=== PATIENT | female | born 1950 | race Caucasian/White ===

== ENCOUNTER 2019-04-29 15:09 | Observation (INO) | payer MEDICARE, OTHER ==
[2019-04-29 15:58] LABS: #Basophils 0.1 thou/uL (0.0-0.2); #Eosinphils 0.2 thou/uL (0.0-0.7); #Lymphocytes 2.6 thou/uL (1.20-3.40); #Monocytes 0.7 thou/uL (0.11-0.59); #Neutrophils 3.6 thou/uL (1.40-6.50); %Basophils 1.1 % (0.0-1.0); %Eosinophils 2.2 % (0.0-10.0); %Lymphocytes 36.5 % (21.0-51.0); %Monocytes 9.2 % (0.0-10.0); %Neutrophils 51.1 % (42.0-75.0); Hemoglobin 13.8 g/dL (12.0-16.0); Mean Corpuscular HGB CONC 32.8 g/dL (32.0-36.0); Mean Corpuscular Hemoglobin 30.8 pg (27.0-31.0); Mean Platelet Volume 7.3 fL (7.4-10.4); Platelet Count 232 thou/uL (130-400); RBC Distribution Width 12.1 % (11.5-14.5); Red Blood Cell (RBC) Count 4.47 mill/uL (4.20-5.40)
[2019-04-29 16:23] LABS: ALT (SGPT) 17 U/L (8-55); AST (SGOT) 22 U/L (5-34); Albumin 4.4 g/dL (3.4-4.8); Alkaline Phosphatase 64 U/L (40-150); Anion Gap 12 mmol/L (10-20); BUN (Urea Nitrogen) 21 mg/dL (9.8-20.1); Bilirubin, Total 0.6 mg/dL (0.2-1.2); CK (CPK) 122 U/L (29-168); Calc. Creatinine Clearance 0 mL/min (70-130); Calcium 9.9 mg/dL (7.8-10.44); Carbon Dioxide 26 mmol/L (23-31); Chloride 101 mmol/L (98-107); Estimated GFR-MDRD 68; Globulin 2.9 g/dL (2.4-3.5); Glucose 106 mg/dL (83-110); Lipase 40 U/L (8-78); Protein, Total 7.3 g/dL (6.0-8.3); Sodium 135 mmol/L (136-145)
--- NOTE | 2019-04-29 16:26 | RAD ---
CHEST ONE VIEW: 04/29/2019 3:39 p.m. HISTORY: Chest pain. FINDINGS: The heart size is normal. The lungs are well expanded without lobar areas of consolidation, pneumoth oraces, or pleural effusions. IMPRESSION: No acute process. POS: OFF
[2019-04-29] MEDS ORDERED: Nitroglycerin 2% Ointment 1 INCH/1 GM Packet ONE (16:35)
[2019-04-29] MEDS ORDERED: Lorazepam 2 MG/ML VIAL ONE (16:35)
[2019-04-29] MEDS ORDERED: Acetaminophen 325 MG TAB PO PRN (17:07)
[2019-04-29] MEDS ORDERED: Guaifenesin DM 100-10/5 ML UDCUP PO PRN (17:07)
[2019-04-29] MEDS ORDERED: Senokot S 8.6-50 MG TAB PO PRN (17:07)
[2019-04-29] MEDS ORDERED: Ondansetron PF 4 MG/2 ML Vial IVP PRN (17:07)
[2019-04-29] MEDS ORDERED: Nitroglycerin 0.4 MG TAB (25 Tab Bottle) PO PRN (17:07)
[2019-04-29 18:20] LABS: Troponin I Less than 0.010 ng/mL (< 0.028)
--- NOTE | 2019-04-29 20:07 | HP ---
PRIMARY CARE PHYSICIAN: Latonya Kumar MD REASON FOR ADMISSION: Uncontrolled hypertension, chest pain. HISTORY OF PRESENTING ILLNESS: The patient gives history of lightheaded feeling last evening, and thought she might pass out. This morning, the patient woke up hurting all over. She took Tylenol around 11 a.m. Then she took her brother for a dental appointment. While at her brother's dentist place, she checked her blood pressure, it was 180/101. She went home and around 3 p.m., the pressure was still high and as the patient started to have uncomfortable feeling in her left side of her chest. No pain as such. No radiation of this discomfort. No complaints of shortness of breath, palpitation, PND, or orthopnea. No complaints of fever, cough, or expectoration. The patient also mentions that she had gone to see her primary care physician, Dr. Latonya Kumar, a week back and her blood pressure was 126/68. PAST MEDICAL AND SURGICAL HISTORY: Hypertension, history of glaucoma, dyslipidemia, history of melanoma removed from her anterior chest wall just beneath her neckline, tonsillectomy, and hysterectomy. The patient has had a stress test around six years back in [place], [place] with Dr. Moe and it was apparently normal as far as she knows. No prior cardiac intervention including stents. CURRENT MEDICATIONS: The patient takes; 1. Lisinopril 20 mg twice daily. 2. Atorvastatin 10 mg daily. 3. Travatan and Alphagan eye drops. ALLERGIES: ALLERGIC TO PENICILLIN. PERSONAL HISTORY: Does not abuse alcohol or drugs. No history of smoking. FAMILY HISTORY: Mother lived up to 102 years and of natural causes. Father at the age of 70 years. He has had history of emphysema and hypertension. CODE STATUS: Full. Power of erisa attorney is her . REVIEW OF SYSTEMS: CONSTITUTIONAL: Negative for weight loss or gain, ability to conduct usual activities. SKIN: Negative for rash, itching. EYES: Negative for double vision, pain. ENT/MOUTH: Negative for nose bleeding, neck stiffness, pain, tenderness. CARDIOVASCULAR: Negative for palpitations, dyspnea on exertion, orthopnea. RESPIRATORY: Negative for shortness of breath, wheezing, cough, hemoptysis, fever or night sweats. GASTROINTESTINAL: Negative for poor appetite, abdominal pain, heartburn, nausea, vomiting, constipation, or diarrhea. GENITOURINARY: Negative for urgency, frequency, dysuria, nocturia. MUSCULOSKELETAL: Negative for pain, swelling. NEUROLOGIC/PSYCHIATRIC: Negative for anxiety, depression. ALLERGY/IMMUNOLOGIC: Negative for skin rash, bleeding tendency. PHYSICAL EXAMINATION: GENERAL: The patient is a 69-year-old female, who is currently not in any acute distress. VITAL SIGNS: Blood pressure 164/84, pulse 86 per minute, respiratory rate 18 per minute, temperature 98.9 degrees Fahrenheit, and saturating 99% on room air. NECK: Supple. No elevated JVD. HEENT: Eyes, extraocular muscles intact. Pupils reacting to light. Oral cavity, mucous membranes are dry. No exudates or congestion. CARDIOVASCULAR SYSTEM: S1 and S2 heard. Regular rhythm. RESPIRATORY SYSTEM: Air entry 1+ bilateral. No rales or rhonchi. ABDOMEN: Soft. Bowel sounds heard. No tenderness, rigidity, or guarding. EXTREMITIES: No peripheral edema or calf tenderness. VASCULAR SYSTEM: Peripheral pulses 1+ bilateral. No ischemic ulcerations or gangrene. CENTRAL NERVOUS SYSTEM: No gross focal deficits noted. The patient is alert, awake, and oriented well. PSYCHIATRIC SYSTEM: The patient's mood is euthymic. No hallucinations or delusions. LABORATORY DATA: Chest x-ray done shows no acute process. EKG done shows normal sinus rhythm at 80 beats per minute. There is questionable Q-waves in leads III and AVF. White count of 7, H and H 13 and 42, platelet count 232, and MCV is 94 with 51% neutrophils. Electrolytes are stable. BUN 21 and creatinine 0.8. Liver enzymes within normal limits. Troponin x2 negative. Albumin is 4.4. CLINICAL IMPRESSION AND PLAN: The patient will be under observation on telemetry for atypical chest pain to rule out acute coronary syndrome. The patient also appears to have mild dehydration and we will gently hydrate her with normal saline at 100 mL/h. We will continue her lisinopril at 10 mg twice daily, Lopressor 12.5 mg twice daily, aspirin full dose, and Lipitor 10 mg p.o. at bedtime. She will also continue Protonix 40 mg daily. We will obtain a nuclear stress test in the morning. We will keep her n.p.o. after midnight. We will also check orthostatic blood pressures. Job ID: [id number]
[2019-04-29 20:10] VITALS: BMI 27.8
[2019-04-29] MEDS: Lisinopril 10 MG TAB PO SCH (20:53)
[2019-04-29] MEDS: Metoprolol Tartrate 25 MG TAB PO SCH (20:53)
[2019-04-29] MEDS: Sodium Chloride 0.9% 1,000 ML IV SCH (20:55)
[2019-04-29] MEDS ORDERED: Atorvastatin Calcium 10 MG TAB PO SCH (21:00)
[2019-04-29 21:22] LABS: Troponin I Less than 0.010 ng/mL (< 0.028)
[2019-04-29] MEDS ORDERED: Nitroglycerin 2% Ointment 1 INCH/1 GM Packet TOP SCH (23:59)
[2019-04-30 05:14] LABS: Anion Gap 8 mmol/L (10-20); BUN (Urea Nitrogen) 17 mg/dL (9.8-20.1); Calc. Creatinine Clearance 74 mL/min (70-130); Calcium 9.1 mg/dL (7.8-10.44); Carbon Dioxide 27 mmol/L (23-31); Cardiac Risk 3.2 (Less than 4.5); Chloride 107 mmol/L (98-107); Cholesterol 148 mg/dl (< 200 Desired); Estimated GFR-MDRD 77; Glucose 92 mg/dL (83-110); HDL Cholesterol 46 mg/dL (>60 Neg Risk); LDL Cholesterol, Calculated 89 mg/dL; Potassium 3.8 mmol/L (3.5-5.1); Sodium 138 mmol/L (136-145); Triglycerides 67 mg/dL (Less than 150)
[2019-04-30] MEDS: Sodium Chloride 0.9% 1,000 ML IV SCH (06:34)
[2019-04-30] MEDS ORDERED: Aspirin 325 mg Enteric Coated Tablet PO SCH (09:00)
[2019-04-30] MEDS ORDERED: Enoxaparin Sodium 40 MG/0.4 ML SYRINGE SC SCH (09:00)
[2019-04-30] MEDS: Lisinopril 10 MG TAB PO SCH (10:29)
[2019-04-30] MEDS: Metoprolol Tartrate 25 MG TAB PO SCH (10:29)
--- NOTE | 2019-04-30 10:45 | NM ---
Myocardial perfusion scan with SPECT imaging HISTORY: Chest pain COMPARISON: None. FINDINGS: Examination was performed using 30 mCi 90 9M technetium sestamibi on the stress and 10.1 mC i on the resting images. This shows a normal distribution of radiopharmaceutical without signs of ischemia or scar. Wall motion: There is symmetric contractility of the ventricle. Left ventricular ejection fraction: The calculated left ventricular ejection fraction is 60%. IMPRESSION: Unremarkable myocardial perfusion scan.
[2019-04-30 12:03] VITALS: BP 138/74; TEMP 98.1
--- NOTE | 2019-04-30 14:46 | DIS ---
DATE OF ADMISSION: 04/29/2019 DATE OF DISCHARGE: 04/30/2019 DISCHARGE DISPOSITION: Home. PRIMARY DISCHARGE DIAGNOSES: 1. Atypical chest pain, resolved. 2. Hypertension labile, stable. SECONDARY DISCHARGE DIAGNOSES: 1. Dyslipidemia. 2. History of glaucoma. 3. History of melanoma removed from anterior chest wall. PROCEDURES DONE DURING HOSPITALIZATION: The patient has had chest x-ray done, which showed no acute process. Nuclear stress test done showed ejection fraction of 60% with symmetric contractility of the ventricle. Myocardial perfusion scan was unremarkable. H and H 13 and 42, platelet count 232, MCV is 94. Troponin x3 negative. Total cholesterol 148, triglyceride 67, LDL 89. Lipase is 40. BUN 17, creatinine 0.7. DISCHARGE MEDICATIONS: 1. Lipitor 10 mg p.o. at bedtime. 2. Brimonidine and Travatan eye drops as before. 3. Lisinopril 20 mg twice daily. ALLERGIES: ALLERGIC TO CODEINE AND PENICILLIN. DISCHARGE PLAN: The patient to follow up with Dr. Latonya Kumar, her primary care physician in 1 week. BRIEF COURSE DURING HOSPITALIZATION: The patient initially came in with complaints of left-sided chest pain with dizziness. She also had labile hypertension. The patient was also stressed out taking care of her brother who recently had multiple episodes of diarrhea, which caught the patient off guard. She is the sole caregiver for her brother. In view of this history, the patient was placed under observation on telemetry. She has had 3 sets of troponin done which was negative. Nuclear stress test done showed no reversible ischemia. Her hypertension is fairly stable. No new medications were added. She was advised to get home health and nursing help for her brothers, which would help her with less physical stress and emotional stress as well. She is hemodynamically stable and will be shortly discharged home. Please note, I have seen and examined the patient on the day of discharge. Job ID: [id number]
--- NOTE | 2019-05-04 13:04 | EKG ---
Test Reason : CP Blood Pressure : / mmHG Vent. Rate : 080 BPM Atrial Rate : 080 BPM P-R Int : 184 ms QRS Dur : 092 ms QT Int : 388 ms P-R-T Axes : 062 020 022 degrees QTc Int : 447 ms Normal sinus rhythm Normal ECG Confirmed by DANA CHAVEZ, JOSÉ MIGUEL Muñoz ([id number]), desk editor BRIDGET TINSLEY ([id number]) on 05/04/2019 1:03:42 PM Referred By: Confirmed By:JOSÉ MIGUEL CORTEZ MD
== END 2019-04-30 13:20 | disposition home or self-care (01) ==
LOC: ERS 15:09 → 2SW 19:35
PROVIDERS: ADMIT Internal Medicine; ATTEND Internal Medicine
DX: R07.89 Other chest pain (principal); I10 Essential (primary) hypertension; E78.5 Hyperlipidemia, unspecified; Z86.69 Personal history of other diseases of the nervous system and sense organs; Z85.820 Personal history of malignant melanoma of skin; Z88.0 Allergy status to penicillin; Z88.5 Allergy status to narcotic agent; Z79.899 Other long term (current) drug therapy
CPT/HCPCS: 71045; 78452; 80048; 80053; 80061; 82550; 83690; 84484 ×2; 85025; 93005; 93017; 94760; 96361 ×2; 96372; 96374; 99284; A9500; G0378 ×2; 36415; J1650; J2060

== ENCOUNTER 2019-06-03 15:38 | Outpatient (CLI) | payer MEDICARE ==
--- NOTE | 2019-06-03 16:41 | ULT ---
THYROID ULTRASOUND: 06/03/2019 HISTORY: Thyroid goiter. COMPARISON: None. TECHNIQUE: Multiplanar brothers-scale sonographic imaging of the thyroid gland obtained. FINDINGS: The thyroid isthmus measures 2 mm in AP dimension. The right lobe of the thyroid gland measures 4.7 x 1.5 x 1.6 cm, and the left lobe measures 4.1 x 1.2 x 1.5 cm. There are 3 nodules within the right lobe of the thyroid gland. This includes an 8 x 6 x 3 mm hypoec hoic nodule within the superior aspect of the right, laterally, a 3 x 5 x 3 mm cyst within the midportion of the right lobe, and a 1.4 x 1.1 x 1.2 cm solid, hypoechoic nodule within the inferior a spect of the right lobe. There are probable punctate calcifications within the dominant nodule within the right lobe. There is a 4 x 3 x 3 mm hypoechoic nodule within the midportion of the left l obe. IMPRESSION: TI-RADS category 5-Highly suspicious. Recommend fine needle aspiration of the dominant inferior right thyroid nodule. CODE T Transcribed Date/Time: 06/03/2019 5:58 PM
== END 2019-06-03 15:39 | disposition home or self-care (01) ==
LOC: BICULT 15:38
PROVIDERS: ATTEND Neurological Surgery
DX: E04.9 Nontoxic goiter, unspecified (principal)
CPT/HCPCS: 36415; 76536; 84439; 84443

== ENCOUNTER 2019-09-08 18:32 | Emergency (ER) | payer MEDICARE ==
[2019-09-08] MEDS ORDERED: HYDROcodone/Acetaminophen 5/325 mg Tablet ONE (19:38)
--- NOTE | 2019-09-08 19:40 | RAD ---
XR Chest 1 View Portable History: Hypertension Comparison: Radiograph April 29, 2019 Findings: Lungs are clear. No pneumothorax or effusion. Cardiac silhouette and mediastinal contours a re within normal limits. No acute osseous abnormality. Impression: No acute intrathoracic abnormality.
[2019-09-08 20:02] LABS: #Basophils 0.1 thou/uL (0.0-0.2); #Eosinphils 0.4 thou/uL (0.0-0.7); #Lymphocytes 2.8 thou/uL (1.20-3.40); #Monocytes 0.8 thou/uL (0.11-0.59); #Neutrophils 6.8 thou/uL (1.40-6.50); %Basophils 0.7 % (0.0-1.0); %Eosinophils 3.7 % (0.0-10.0); %Lymphocytes 25.7 % (21.0-51.0); %Monocytes 7.6 % (0.0-10.0); %Neutrophils 62.3 % (42.0-75.0); Hemoglobin 13.9 g/dL (12.0-16.0); Mean Corpuscular HGB CONC 35.4 g/dL (32.0-36.0); Mean Corpuscular Hemoglobin 33.2 pg (27.0-31.0); Mean Corpuscular Volume 93.9 fL (78.0-98.0); Mean Platelet Volume 6.5 fL (7.4-10.4); Platelet Count 279 thou/uL (130-400); RBC Distribution Width 11.8 % (11.5-14.5); Red Blood Cell (RBC) Count 4.19 mill/uL (4.20-5.40); White Blood Cell (WBC) Count 10.9 thou/uL (4.8-10.8)
[2019-09-08 20:06] LABS: ALT (SGPT) 15 U/L (8-55); AST (SGOT) 18 U/L (5-34); Alkaline Phosphatase 98 U/L (40-110); Anion Gap 10 mmol/L (10-20); BUN (Urea Nitrogen) 13 mg/dL (9.8-20.1); Bilirubin, Total 0.4 mg/dL (0.2-1.2); CK (CPK) 153 U/L (29-168); Calc. Creatinine Clearance 0 mL/min (70-130); Calcium 9.2 mg/dL (7.8-10.44); Carbon Dioxide 28 mmol/L (23-31); Chloride 101 mmol/L (98-107); Estimated GFR-MDRD 73; Globulin 2.5 g/dL (2.4-3.5); Glucose 181 mg/dL (83-110); Lipase 36 U/L (8-78); Potassium 4.2 mmol/L (3.5-5.1); Protein, Total 6.5 g/dL (6.0-8.3); Sodium 135 mmol/L (136-145)
== END 2019-09-08 21:30 | disposition home or self-care (01) ==
LOC: ERS 18:32
DX: I10 Essential (primary) hypertension (principal); M25.511 Pain in right shoulder; E78.5 Hyperlipidemia, unspecified; E78.00 Pure hypercholesterolemia, unspecified; Z79.899 Other long term (current) drug therapy
CPT/HCPCS: 36415; 71045; 80053; 82550; 83690; 84484; 85025; 93005

== ENCOUNTER 2019-10-01 10:51 | Outpatient (CLI) | payer MEDICARE ==
--- NOTE | 2019-10-01 12:42 | BD ---
DEXA BONE DENSITY STUDY: HISTORY: Postmenopausal. LUMBAR SPINE BMD (g/cm2) T-SCORE L1 0.823 -1.5 L2 0.941 -0.8 L3 1.055 -0.3 L4 1.094 +0.3 TOTAL 0.998 -0.4 LEFT FEMORAL NECK 0.707 -1.3 TOTAL 0.854 -0.7 IMPRESSION: 1. Osteopenia of left femoral neck. 2. Normal bone mineral density of the lumbar spine. 3. The ten year fracture risk for a major osteoporotic fracture is 13% and for a hip fracture is 1.9% . These fracture probabilities are calculated for an untreated patient. POS: TPC
--- NOTE | 2019-10-21 09:01 | MMO ---
Bilateral MAMMO Bilat Screen [facility]. CLINICAL HISTORY: Patient is 69 years old and is seen for screening. The patient has a history of melanoma. VIEWS: The views performed were: bilateral craniocaudal with tomosynthesis and bilateral mediolateral oblique with tomosynthesis. FILMS COMPARED: The present examination has been compared to prior imaging studies performed at [facility] on 07/17/2015, 07/29/2016, 08/04/2017 and 09/14/2018. This study has been interpreted with the assistance of computer-aided detection. MAMMOGRAM FINDINGS: The breasts are heterogeneously dense, which could obscure a lesion on mammography. There are stable benign appearing calcifications seen in the right breast. There are no suspicious masses, suspicious calcifications, or new areas of architectural distortion. IMPRESSION: THERE IS NO MAMMOGRAPHIC EVIDENCE OF MALIGNANCY. A ROUTINE FOLLOW-UP MAMMOGRAM IN 1 YEAR IS RECOMMENDED. THE RESULTS OF THIS EXAM WERE SENT TO THE PATIENT. ACR BI-RADS Category 2 - Benign finding MAMMOGRAPHY NOTE: 1. A negative mammogram report should not delay a biopsy if a dominant of clinically suspicious mass is present. 2. Approximately 10% to 15% of breast cancers are not detected by mammography. 3. Adenosis and dense breasts may obscure an underlying neoplasm. Reported by: SAMANTHA HOLCOMB MD Electonically Signed: [id number]
== END 2019-10-01 10:52 | disposition home or self-care (01) ==
LOC: BICMAMMO 10:51
PROVIDERS: ATTEND Family Medicine
DX: Z12.31 Encounter for screening mammogram for malignant neoplasm of breast (principal); M81.0 Age-related osteoporosis without current pathological fracture; M85.852 Other specified disorders of bone density and structure, left thigh; Z85.820 Personal history of malignant melanoma of skin
CPT/HCPCS: 77063; 77067; 77080

== ENCOUNTER 2019-10-02 04:38 | Emergency (ER) | payer MEDICARE ==
[2019-10-02] MEDS ORDERED: Metoclopramide HCl 10 MG/2 ML VIAL ONE (05:24)
[2019-10-02] MEDS ORDERED: diphenhydrAMINE 50 MG/ML VIAL ONE (05:24)
[2019-10-02] MEDS ORDERED: Ketorolac Tromethamine 30 MG/ML VIAL ONE (05:24)
== END 2019-10-02 06:50 | disposition home or self-care (01) ==
LOC: ERS 04:38
DX: R51 Headache (principal); E78.5 Hyperlipidemia, unspecified; E78.00 Pure hypercholesterolemia, unspecified; I10 Essential (primary) hypertension; Z79.899 Other long term (current) drug therapy
CPT/HCPCS: 96365; 96375; J1200; J1885; J2765

== ENCOUNTER 2019-12-09 06:50 | Outpatient (CLI) | payer MEDICARE ==
[2019-12-09 13:11] LABS: Prothrombin Time 12.8 SEC (12.0-14.7)
[2019-12-09 13:15] LABS: #Basophils 0.1 thou/uL (0.0-0.2); #Eosinphils 0.2 thou/uL (0.0-0.7); #Lymphocytes 2.7 thou/uL (1.20-3.40); #Monocytes 0.6 thou/uL (0.11-0.59); #Neutrophils 3.6 thou/uL (1.40-6.50); %Basophils 0.7 % (0.0-1.0); %Eosinophils 2.1 % (0.0-10.0); %Lymphocytes 37.6 % (21.0-51.0); %Monocytes 8.9 % (0.0-10.0); %Neutrophils 50.7 % (42.0-75.0); Hemoglobin 14.5 g/dL (12.0-16.0); Mean Corpuscular HGB CONC 33.4 g/dL (32.0-36.0); Mean Corpuscular Hemoglobin 31.4 pg (27.0-31.0); Mean Platelet Volume 7.3 fL (7.4-10.4); Platelet Count 232 thou/uL (130-400); RBC Distribution Width 12.1 % (11.5-14.5); Red Blood Cell (RBC) Count 4.62 mill/uL (4.20-5.40); White Blood Cell (WBC) Count 7.1 thou/uL (4.8-10.8)
--- NOTE | 2019-12-09 16:31 | EKG ---
Test Reason : Blood Pressure : / mmHG Vent. Rate : 059 BPM Atrial Rate : 059 BPM P-R Int : 204 ms QRS Dur : 096 ms QT Int : 446 ms P-R-T Axes : 072 060 010 degrees QTc Int : 441 ms Sinus bradycardia Otherwise normal ECG When compared with ECG of 08-SEP-2019 18:46, Vent. rate has decreased BY [address] Laura AVILES ([id number]) on 12/09/2019 4:30:41 PM Referred By: ZOLTAN Confirmed By:DR. Laura AVILES
== END 2019-12-09 06:51 | disposition home or self-care (01) ==
LOC: LABBT 06:50
PROVIDERS: ATTEND Orthopaedic Surgery
DX: Z01.818 Encounter for other preprocedural examination (principal); M19.011 Primary osteoarthritis, right shoulder
CPT/HCPCS: 85025; 85610; 87081; 93005; 93010

== ENCOUNTER 2019-12-09 10:30 | Inpatient (IN) | payer MEDICARE ==
[2019-12-09 11:36] VITALS: BMI 27.8
[2019-12-17] MEDS ORDERED: Tranexamic Acid 1,000 MG/10 ML VIAL ONE (05:55)
[2019-12-17] MEDS ORDERED: Sodium Chloride 0.9% 100 ML ONE (05:55)
[2019-12-17] MEDS ORDERED: Fentanyl 100 MCG/2 ML VIAL ONE (06:25)
[2019-12-17] MEDS ORDERED: Midazolam HCl 2 mg/2 ml Vial ONE (06:25)
[2019-12-17] MEDS ORDERED: Lidocaine 1% w/Epinephrine 1:100K 20 ML VIAL ONE (06:42)
[2019-12-17] MEDS ORDERED: Ondansetron PF 4 MG/2 ML Vial IVP PRN ×2 (06:56→14:57)
[2019-12-17] MEDS ORDERED: Ropivacaine 0.2% 550 ML 550 ML NERVE BLCK SCH (06:56)
[2019-12-17] MEDS ORDERED: traMADol HCl 50 MG TAB PO PRN ×4 (06:56→14:57)
[2019-12-17] MEDS ORDERED: Zolpidem Tartrate 5 MG TAB PO PRN (06:56)
[2019-12-17] MEDS ORDERED: HYDROcodone/Acetaminophen 10/325 mg Tablet PO PRN ×2 (06:56)
[2019-12-17] MEDS ORDERED: Acetaminophen 325 MG TAB PO PRN ×2 (06:56→14:57)
[2019-12-17] MEDS ORDERED: Promethazine HCl 25 MG/ML VIAL IM PRN (06:56)
[2019-12-17] MEDS ORDERED: Fentanyl 100 MCG/2 ML VIAL IV PRN (06:56)
[2019-12-17] MEDS ORDERED: Promethazine HCl 25 MG/ML VIAL IM/IV PRN (10:17)
[2019-12-17] MEDS ORDERED: Non-Formulary Medication 1 EACH PO PRN (10:17)
[2019-12-17] MEDS ORDERED: Ondansetron HCl/PF 4 MG/2 ML Vial IVP PRN (10:17)
[2019-12-17] MEDS ORDERED: Ketorolac Tromethamine 30 MG/ML VIAL ONE (10:58)
[2019-12-17] MEDS ORDERED: PROPOFOL 200 MG/20 ML VIAL ONE (10:58)
[2019-12-17] MEDS ORDERED: Ropivacaine 0.2% HCl/PF (40 MG/20 ML VIAL) ONE (10:58)
[2019-12-17] MEDS ORDERED: Ondansetron PF 4 MG/2 ML Vial ONE (10:58)
[2019-12-17] MEDS ORDERED: Dexamethasone 20 MG/5 ML VIAL ONE (10:58)
[2019-12-17] MEDS ORDERED: Ropivacaine 0.5% HCl/PF (150 MG/30 ML VIAL) ONE (10:58)
[2019-12-17] MEDS ORDERED: Rocuronium Bromide 10 MG/ML (10ML VIAL) ONE (10:58)
[2019-12-17] MEDS ORDERED: EPHEDRINE 25 MG/5 ML SYRINGE ONE (10:58)
[2019-12-17] MEDS ORDERED: Lidocaine 1% PF 5 ML VIAL ONE (10:58)
[2019-12-17] MEDS ORDERED: ALPRAZolam 1 MG TAB PO PRN (14:42)
[2019-12-17] MEDS ORDERED: Bisacodyl 10 MG SUPP PR PRN (14:57)
[2019-12-17] MEDS ORDERED: Ondansetron ODT 4 MG TAB PO PRN (14:57)
[2019-12-17] MEDS ORDERED: Morphine 2 MG/ML SYRINGE SLOW IVP PRN (14:57)
[2019-12-17] MEDS ORDERED: Methocarbamol 1 GM/10 ML VIAL SLOW IVP PRN (14:57)
[2019-12-17] MEDS ORDERED: Milk Of Magnesia 30 ML UDCUP PO PRN (14:57)
[2019-12-17] MEDS ORDERED: diphenhydrAMINE 50 MG CAP PO PRN (14:57)
--- NOTE | 2019-12-17 15:26 | OP ---
DATE OF PROCEDURE: 12/17/2019 PREOPERATIVE DIAGNOSES: 1. Right shoulder osteoarthritis. 2. Biceps tendinopathy. 3. Right carpal tunnel syndrome. POSTOPERATIVE DIAGNOSES: 1. Right shoulder osteoarthritis. 2. Biceps tendinopathy. 3. Right carpal tunnel syndrome. PROCEDURE PERFORMED: 1. Right total shoulder arthroplasty. 2. Right open biceps tenodesis. 3. Right carpal tunnel release. AUTOMATED CUTTING MACHINE OPERATOR: Marisol Hastings PA-C ANESTHESIOLOGIST: Doe Wellington MD ANESTHESIA: The patient received a general endotracheal intubation with interscalene block. ESTIMATED BLOOD LOSS: 350 mL TOURNIQUET TIME: None. IMPLANTS: A Tournier Aequalis Perform CortiLoc S35 pegged glenoid with an Aequalis Ascend Flex size 2A humeral stem with a 39 mm Aequalis humeral head with low offset. ANTIBIOTICS: [place] cement. The patient received Ancef 2 g, vancomycin 1 g, and TXA 1 g. COMPLICATIONS: None. HISTORY OF PRESENT ILLNESS: Ms. Foster is a 69-year-old female with right shoulder pain and right carpal tunnel symptoms. The patient started to have both procedures at the same time. I discussed with her the risks and benefits of right total shoulder arthroplasty, biceps tenodesis versus right reverse shoulder arthroplasty and right carpal tunnel release. She understood the risks and benefits of the procedure to include, pain, scar, bleeding, infection, decreased range of motion and strength, continued pain despite surgical intervention, damage to vital structures, and loss of life or limb. The patient understood the risks and benefits of the procedure and elected to proceed. DESCRIPTION OF PROCEDURE: Time-out was performed designating the patient's right upper extremity as the operative site based on site, consents, and marking. After time-out, the patient's right upper extremity was prepped and draped in a sterile fashion. An incision was made through deltopectoral interval, came down, took cephalic vein laterally, came down between the pectoralis just at the superior aspect, came with the conjoint, placed our retractors, exposed the humerus, came down on the biceps, which had some significant synovitis coming down through the biceps, coming through the groove and coming into the rotator interval. I used an osteotome to just make a small emerald for an LTO of the lesser tuberosity, but not get much bone. We peeled the remainder and all the capsule inferior on the neck to expose the head. We did almost 180 degrees release inferiorly to expose the head. We cut the head, removed this, rongeured off the minimal osteophytes and then began broaching. I tried to place it more posteriorly. She had a very small head. We tried to center the head, I centered and broached down to size 1. After 30 degrees of external rotation and placed the opening awl and then cut the position for the broach in 30 degrees external rotation. Being happy with this, I broached up to a 1, placed manhole cover and moved to glenoid. The patient had a very small glenoid. We had used the small 35 glenoid, I pinned in position and then reamed to the 35. I placed my center drill hole, placed my shop and alteration tailor for drilling the 3 pegs, drilled and placed, I cleaned up the periphery, placed my trial, had good overall position, a little bit of superolateral under coverage, but overall had good position on the glenoid. There was a small one that could be placed on the patient's small glenoid. We then washed, cemented, the 3 pegs and placed our pegged anchor into position. I waited 20 minutes for manipulating on top. We then moved back to the humerus. We broached the second #2 downwards which we felt was more stable. We looked at the head fit with 39 mm humeral head, we had good anterior-posterior fit. For 20 minutes, we trialed, we had 50% translation, internal rotation, overhead elevation. I was overall happy with the position. I removed. We drilled holes for #5 Ethibond with 4 stitches through the bone tunnels. We then placed one more through the rotator cuff for an zwjf-rha-iva stitch. We then placed our implant in position. We sewed with W-stitches from inferior to superior and tying them inferior to superior. rotator cuff. We then took the biceps using #2 Ethibond and tenodesed it into the soft tissues of both the supraspinatus and the subscapularis as well as some of the remnant soft tissues tenodesing the entire biceps. I then used my stitch that was in the subscapularis to hold to do an over the top to the lateral stitch that I had placed and so there were two suture strands and I then cut the knot. The patient had good external rotation about 30 to 40 degrees, which improved from preop. She had overall good function. I then washed. We started to close and closed the deltopectoral interval with 0, 2-0, and skin andrew. Procedure #2: Concurrently, I started on her carpal tunnel. I had mapped out the Cardozo's cardinal line proximal to the flexor crease. I used an Esmarch to take the blood for exsanguination of the hand. I made an incision down through skin and controlled bleeding, came down the palmar fascia and transected the palmar fascia, came down the transverse carpal ligament and palmaris brevis, we used a knife to protect the nerve and transected. Used scissors to ensure approximately it was completely released. We then washed. I let the Esmarch down for about 5 minutes and closed with bleeding with 4-0 nylon and placed a soft tissue dressing and this was on both shoulder and hand with Milton wrap all the way up to the shoulder. The patient will be admitted. We followed in-house for both her arm and hand. She will receive antibiotics and we discharged home tomorrow versus next day. Job ID: [id number] [facility]
[2019-12-17] MEDS ORDERED: Famotidine 20 MG TAB PO SCH (16:30)
[2019-12-17] MEDS: Dextrose 5 %-0.45 % NaCl 1,000 ML IV SCH (17:33)
[2019-12-17] MEDS: Metoprolol Tartrate 25 MG TAB PO SCH (17:35)
[2019-12-17] MEDS ORDERED: Vancomycin HCl 1 GM in Premix Bag 1 BAG IVPB SCH (18:00)
[2019-12-17] MEDS: Acetaminophen/Codeine 30-300mg Tablet PO PRN (19:39)
[2019-12-17] MEDS ORDERED: Atorvastatin Calcium 10 MG TAB PO SCH (21:00)
[2019-12-17] MEDS ORDERED: VYZULTA EA EYE SCH (21:00)
[2019-12-17] MEDS: Lisinopril 20 MG TAB PO SCH (21:02)
[2019-12-17] MEDS: Ketorolac Tromethamine 30 MG/ML VIAL IVP PRN (21:15)
[2019-12-17] MEDS: CEFAZOLIN 2 GM in Premix Bag 1 BAG IVPB SCH (22:10)
[2019-12-18] MEDS: CEFAZOLIN 2 GM in Premix Bag 1 BAG IVPB SCH (05:15)
[2019-12-18] MEDS: Ketorolac Tromethamine 30 MG/ML VIAL IVP PRN ×2 (05:16→12:01)
[2019-12-18] MEDS: Dextrose 5 %-0.45 % NaCl 1,000 ML IV SCH (06:40)
[2019-12-18] MEDS: Metoprolol Tartrate 25 MG TAB PO SCH (08:28)
[2019-12-18] MEDS: Vit A,C & E/Lutein/Minerals Tablet PO SCH ×2 (08:28→08:29)
[2019-12-18] MEDS: Lisinopril 20 MG TAB PO SCH (08:29)
[2019-12-18] MEDS ORDERED: Famotidine 20 MG TAB PO SCH (09:00)
[2019-12-18] MEDS ORDERED: Escitalopram Oxalate 10 mg Tablet PO SCH (09:00)
[2019-12-18 11:32] VITALS: BP 147/72; TEMP 99
[2019-12-18] MEDS: Acetaminophen/Codeine 30-300mg Tablet PO PRN (12:48)
== END 2019-12-18 13:30 | disposition home or self-care (01) | DRG 483 ==
LOC: SJJU 12-17 05:29 → SURG A 12-17 15:12
PROVIDERS: ADMIT Orthopaedic Surgery; ATTEND Orthopaedic Surgery
PROC: 0RRJ00Z Replacement of Right Shoulder Joint with Reverse Ball and Socket Synthetic Substitute, Open Approach (ICD-10-PCS; principal; 2019-12-17)
PROC: 01N50ZZ Release Median Nerve, Open Approach (ICD-10-PCS; 2019-12-17)
DX: M19.011 Primary osteoarthritis, right shoulder (principal); G56.01 Carpal tunnel syndrome, right upper limb; I10 Essential (primary) hypertension; E78.5 Hyperlipidemia, unspecified; Z79.899 Other long term (current) drug therapy
CPT/HCPCS: A4306; C1713; J0690; J1100; J1885; J2001; J2250; J2405; J2704; J2795; J3010; J3370; J3490

== ENCOUNTER 2019-12-19 17:37 | Emergency (ER) | payer MEDICARE | END 2019-12-19 20:11 | disposition left against medical advice (07) | LOC: ERS 17:37 | DX: Z53.21 Procedure and treatment not carried out due to patient leaving prior to being seen by health care provider (principal) ==

== ENCOUNTER 2020-02-03 11:47 | Outpatient (CLI) | payer MEDICARE ==
--- NOTE | 2020-02-03 12:37 | RAD ---
Exam:3 views left ankle HISTORY: Pain. Swelling. COMPARISON: None FINDINGS: Preserved joint spaces. Ankle mortise is intact. No fracture. There is soft tissue swelling . IMPRESSION: Soft tissue swelling, without fracture
--- NOTE | 2020-02-03 15:56 | ULT ---
VENOUS DOPPLER ULTRASOUND OF THE LEFT LOWER EXTREMITY: HISTORY: Left lower extremity edema. TECHNIQUE: Roberts scale ultrasound with color flow and spectral Doppler imaging of the deep venous system of the l eft lower extremity is performed. FINDINGS: There is good flow, compression, and augmentation noted in the common femoral, femoral, deep femoral, popliteal, and posterior tibial veins in the left lower extremity. Incidental note is also made of an avascular complex cystic mass in the left posterior knee/popliteal region which tapers down the back of the proximal calf. This measures 4.8 x 3 x 1 cm and likely rep resents a complicated Dahl's cyst. IMPRESSION: No evidence of deep vein thrombosis in the left lower extremity. POS: MZA
== END 2020-02-03 11:48 | disposition home or self-care (01) ==
LOC: BICRAD 11:47
PROVIDERS: ATTEND Family Medicine
DX: M25.572 Pain in left ankle and joints of left foot (principal); M79.89 Other specified soft tissue disorders

== ENCOUNTER 2020-07-17 11:15 | Outpatient (CLI) | payer MEDICARE, OTHER ==
[2020-07-17 19:49] LABS: SARS-CoV-2 MS2 Positive; SARS-CoV-2 N Gene Negative; SARS-CoV-2 S Gene Negative; SARS-CoV-2 by NAA Not Detected (NotDetected); SARS-CoV-2 orf1ab Negative
== END 2020-07-17 11:16 | disposition home or self-care (01) ==
LOC: LABSCS 11:15
PROVIDERS: ATTEND Student in an Organized Health Care Education/Training Program
DX: Z20.828 Contact with and (suspected) exposure to other viral communicable diseases (principal)
CPT/HCPCS: 87635; U0003

== ENCOUNTER 2020-07-22 12:50 | Day surgery (SDC) | payer MEDICARE ==
[2020-07-22 13:48] VITALS: BP 155/79; TEMP 98.1
[2020-07-22 14:47] VITALS: BMI 28.7
--- NOTE | 2020-07-22 15:36 | ULT ---
PROCEDURE: US Thyroid Needle Bx PROVIDED CLINICAL HISTORY: Hypoechoic nodules right lobe of thyroid gland. Fine-needle aspiration of the larger dominant thyroid nodules was requested. COMPARISON: Thyroid ultrasound 06/08/2020 TECHNIQUE: The procedure including the risks and complications were explained to the patient, and informed conse nt was obtained. The nodules in the right lobe of the thyroid gland were localized. The neck was meticulously prepped and draped in usual sterile fashion. Skin and subcutaneous tissues overlying the nodule in the anterior aspect midportion right lobe of th yroid gland were infiltrated with buffered 1% lidocaine for local anesthesia. Utilizing concurrent real-time ultrasound guidance, 4 fine-needle aspiration specimens were obtained utilizing a 25-gauge needle.. Skin and subcutaneous tissues overlying the nodule in the inferior pole right lobe of thyroid gland w ere infiltrated with buffered 1% lidocaine for local anesthesia. Utilizing concurrent real-time ultrasound guidance, 4 fine-needle aspiration specimens were obtained utilizing a 25-gauge needle. Follow-up ultrasound examination demonstrates no fluid or hematoma surrounding the thyroid gland. Patient tolerated the procedure well and without immediate complication. After hemostasis was achieve d, a dry sterile dressing was placed at puncture sites. Patient tolerated the procedure well and without immediate complication. IMPRESSION: Technically successful fine-needle aspiration of 2 dominant nodules in the right lobe of the thyroid gland. Pathology is currently pending.
== END 2020-07-22 14:35 | disposition home or self-care (01) ==
LOC: ULT 12:50
PROVIDERS: ATTEND Student in an Organized Health Care Education/Training Program
PROC: 0GBH3ZX Excision of Right Thyroid Gland Lobe, Percutaneous Approach, Diagnostic (ICD-10-PCS; principal; 2020-07-22)
DX: E04.1 Nontoxic single thyroid nodule (principal); I10 Essential (primary) hypertension; E78.5 Hyperlipidemia, unspecified; K21.9 Gastro-esophageal reflux disease without esophagitis; F41.9 Anxiety disorder, unspecified; F32.9 Major depressive disorder, single episode, unspecified; J30.2 Other seasonal allergic rhinitis; M19.90 Unspecified osteoarthritis, unspecified site; Z88.0 Allergy status to penicillin; Z88.5 Allergy status to narcotic agent
CPT/HCPCS: 60100; 76942; 88173

== ENCOUNTER 2020-09-03 06:34 | Outpatient (CLI) | payer MEDICARE ==
[2020-09-03 09:24] LABS: #Basophils 0.1 10x3/uL (0.0-0.2); #Eosinphils 0.1 10x3/uL (0.0-0.5); #Monocytes 0.5 10x3/uL (0.0-1.1); #Neutrophils 2.6 10x3/uL (1.5-8.4); %Basophils 0.9 % (0.0-2.0); %Eosinophils 2.4 % (0.0-6.0); %Lymphocytes 40.4 % (18.0-47.0); %Monocytes 8.2 % (0.0-10.0); %Neutrophils 47.9 % (40.0-75.0); Hemoglobin 13.9 g/dL (12.0-16.0); Mean Corpuscular HGB CONC 33.2 G/DL (32.0-36.0); Mean Corpuscular Volume 93.5 fl (80.0-100.0); Mean Platelet Volume 9.2 fl (7.4-10.4); Platelet Count 273 10x3/uL (130-400); RBC Distribution Width 13.3 % (11.5-14.5); Red Blood Cell (RBC) Count 4.48 10x6/uL (3.90-5.20); White Blood Cell (WBC) Count 5.5 10x3/uL (4.5-11.0)
[2020-09-03 09:34] LABS: Anion Gap 12 mmol/L (10-20); BUN (Urea Nitrogen) 18 mg/dL (9.8-20.1); Calc. Creatinine Clearance 0 mL/min (70-130); Calcium 9.7 mg/dL (7.8-10.44); Carbon Dioxide 30 mmol/L (23-31); Chloride 101 mmol/L (98-107); Estimated GFR-MDRD 71; Glucose 153 mg/dL (83-110); Potassium 4.6 mmol/L (3.5-5.1); Sodium 138 mmol/L (136-145)
[2020-09-03 17:38] LABS: SARS-CoV-2 MS2 Positive; SARS-CoV-2 N Gene Negative; SARS-CoV-2 S Gene Negative; SARS-CoV-2 by NAA Not Detected (NotDetected); SARS-CoV-2 orf1ab Negative
== END 2020-09-03 06:35 | disposition home or self-care (01) ==
LOC: LABBT 06:34
PROVIDERS: ATTEND Orthopaedic Surgery
DX: Z01.818 Encounter for other preprocedural examination (principal); Z20.828 Contact with and (suspected) exposure to other viral communicable diseases; M19.012 Primary osteoarthritis, left shoulder
CPT/HCPCS: 80048; 85025; 87081; 93005; U0003; 87635; 93010

== ENCOUNTER 2020-09-03 08:15 | Inpatient (IN) | payer MEDICARE ==
[2020-09-08] MEDS ORDERED: Vancomycin 1 GM/200 ML BAG ONE (05:56)
[2020-09-08] MEDS ORDERED: Sodium Chloride 0.9% 100 ML ONE (05:56)
[2020-09-08] MEDS ORDERED: Tranexamic Acid 1,000 MG/10 ML VIAL ONE (05:56)
[2020-09-08] MEDS ORDERED: Clindamycin/D5W 600 mg/50 ml Premix Bag ONE (05:56)
[2020-09-08] MEDS ORDERED: Midazolam HCl 2 mg/2 ml Vial ONE (06:29)
[2020-09-08] MEDS ORDERED: Fentanyl 100 MCG/2 ML VIAL ONE ×2 (06:30→19:59)
[2020-09-08 07:24] LABS: Prothrombin Time 13.1 sec (12.0-14.7)
[2020-09-08] MEDS ORDERED: Fentanyl 100 MCG/2 ML VIAL IV PRN (07:34)
[2020-09-08] MEDS ORDERED: traMADol HCl 50 MG TAB PO PRN ×4 (07:45→21:24)
[2020-09-08] MEDS ORDERED: Promethazine HCl 25 MG/ML VIAL IM PRN (07:45)
[2020-09-08] MEDS ORDERED: Ropivacaine 0.2% 550 ML 550 ML NERVE BLCK SCH (07:45)
[2020-09-08] MEDS ORDERED: Zolpidem Tartrate 5 MG TAB PO PRN ×2 (07:45→21:24)
[2020-09-08] MEDS ORDERED: HYDROcodone/Acetaminophen 10/325 mg Tablet PO PRN ×3 (07:45→21:24)
[2020-09-08] MEDS ORDERED: Ondansetron PF 4 MG/2 ML Vial IVP PRN ×2 (07:45→21:24)
[2020-09-08] MEDS ORDERED: Ropivacaine 0.5% HCl/PF (150 MG/30 ML VIAL) ONE (09:19)
[2020-09-08] MEDS ORDERED: Ropivacaine 0.2% HCl/PF (40 MG/20 ML VIAL) ONE (09:19)
[2020-09-08] MEDS ORDERED: ePHEDrine 50 MG/ML VIAL ONE (09:19)
[2020-09-08] MEDS ORDERED: Rocuronium Bromide 10 MG/ML (10ML VIAL) ONE (09:19)
[2020-09-08] MEDS ORDERED: Lidocaine 1% PF 5 ML VIAL ONE (09:19)
[2020-09-08] MEDS ORDERED: PROPOFOL 200 MG/20 ML VIAL ONE (09:19)
[2020-09-08] MEDS ORDERED: Glycopyrrolate 0.2 MG/ML 5 ML SYRINGE ONE (09:19)
--- NOTE | 2020-09-08 13:12 | OP ---
DATE OF PROCEDURE: 09/08/2020 PREOPERATIVE DIAGNOSES: 1. Left shoulder osteoarthritis. 2. Biceps tendinopathy. POSTOPERATIVE DIAGNOSES: 1. Left shoulder osteoarthritis. 2. Biceps tendinopathy. PROCEDURES PERFORMED: 1. Left total shoulder arthroplasty. 2. Biceps tenodesis, open. OPHTHALMIC MEDICAL TECHNOLOGIST: Samuel Silveira PA-C. ANESTHESIA: Dr Demetris CHAVEZ the patient received a general endotracheal intubation and interscalene block. ESTIMATED BLOOD LOSS: Less than 100 mL. TOURNIQUET TIME: None. ANTIBIOTICS: Clindamycin 600 mg, vancomycin 1 g. The patient received tranexamic acid 1 g. The patient had a Perform CortiLoc small 35 glenoid, Humeral Flex Stem 2B plus a 41 x 15 mm head. COMPLICATIONS: None. HISTORY OF PRESENT ILLNESS: Ms. Foster is a 70-year-old female, presents with left shoulder pain that has been present for several years, increasing since she had her right shoulder replaced. The patient desired to have some relief. I discussed with her the risks and benefits of surgery to include pain, scar, bleeding, infection, damage to vital structures, decreased range of motion and strength, continued pain despite surgical intervention, failure of procedure, loss of life or limb, risk of blood clots. She understood the risks and benefits and elected to proceed. DESCRIPTION OF PROCEDURE: Time-out was performed designating the patient's left upper extremity as the operative site based on site, consents, and marking. After time-out, the patient's left upper extremity was prepped and draped in a sterile fashion. The patient had a deltopectoral incision made, came down and found the cephalic vein, dissected in between the deltopectoral interval, took down the portion of the pec to expose the conjoint, placed our Kobel in position. We dissected out the patient's biceps, took our osteotome, knocked the lesser tuberosity off for LTO, did our capsular splint into the interval to expose the head, removed, and rongeured our osteophytes off, pulled the head in position, placed our guide and cut our humeral head, removed our bone and started broaching, coming up to a 1. We reamed, placed our manhole cover and exposed the glenoid, did 360-degree release to expose the glenoid placing our bankart retractor anteriorly. Being happy with our exposure, placed our center guide pin with a Perform CortiLoc small 35 similar to the contralateral side, placed our center pin, reamed, drilled our center hole, placed our peg component guide and drilled all three holes, removed, trialed and felt we had good overall stability, removed, washed, placed cement in the peripheral holes and cemented our small CortiLoc into position. We then moved back to the humerus. We took the 1 out, which felt loose, broached down to a 2, reamed, felt we had good overall stability. We trialed first 39, and ultimately we put a 41, we felt that had better coverage anterior to posterior and superior to inferior. We waited 15 minutes until cement was essentially hardened. We trialed, just putting in, had good translation, internal and external rotation, overhead elevation. We washed, we removed the head, placed four #5 Ethibonds through the patient's bone tunnels just on the lateral aspect of the LTO and into the biceps groove. We passed those W-stitches into the cuff, sewing from inferior to superior, we sewed the cuff together. We used a stitch in and out in the cuff through the case and we had also placed a stitch through the rotator cuff and back to the bone around the stem, before the implant was impacted into place. We impacted the bone into place. We sewed the biceps with #5 Ethibond as well as the rotator interval, passed the biceps into the interval groove and sewed into place, placed the rotator stitch laterally for a double row cut the stitches, washed, closed the deltopectoral interval with 0 and 2-0, skin with andrew. The patient will be admitted and will receive 24-hours of antibiotics, will be discharged home tomorrow, will be followed in-house, will perform her own dedicated therapy. My diploma dental assistant helped me with the exposure, protection, retraction of vital structures, LTO, exposure of the humeral head, osteotomy of the humeral head, exposure of the glenoid, release of the labrum, reaming and implantation of the glenoid socket, broaching and trialing of the final humeral component, replacing final humeral component, closing the rotator cuff, closing the interval, closing the skin, application of sling. Job ID: [id number] [facility]
[2020-09-08] MEDS ORDERED: traMADol HCl 50 MG TAB ONE (18:27)
[2020-09-08] MEDS ORDERED: Ketorolac Tromethamine 30 MG/ML VIAL ONE (18:27)
[2020-09-08] MEDS: Ketorolac Tromethamine 30 MG/ML VIAL IVP SCH ×2 (18:32→22:31)
[2020-09-08] MEDS ORDERED: Milk Of Magnesia 30 ML UDCUP PO PRN (21:24)
[2020-09-08] MEDS ORDERED: Ketorolac Tromethamine 30 MG/ML VIAL IVP PRN (21:24)
[2020-09-08] MEDS ORDERED: Methocarbamol 500 MG TAB PO PRN (21:24)
[2020-09-08] MEDS ORDERED: Ondansetron ODT 4 MG TAB PO PRN (21:24)
[2020-09-08] MEDS ORDERED: Acetaminophen 325 MG TAB PO PRN (21:24)
[2020-09-08] MEDS ORDERED: Methocarbamol 1 GM/10 ML VIAL SLOW IVP PRN (21:24)
[2020-09-08] MEDS ORDERED: Bisacodyl 10 MG SUPP PR PRN (21:24)
[2020-09-08] MEDS ORDERED: diphenhydrAMINE 50 MG CAP PO PRN (21:24)
[2020-09-08] MEDS: Dextrose 5 %-0.45 % NaCl 1,000 ML IV SCH (21:38)
[2020-09-08] MEDS ORDERED: Vancomycin 1 GM in Premix Bag 1 BAG IVPB SCH (21:45)
[2020-09-08 21:49] VITALS: BMI 30.4
[2020-09-08] MEDS: Famotidine 20 MG TAB PO SCH (22:25)
[2020-09-08] MEDS: Clindamycin/D5W 900 MG in Premix Bag 1 BAG IVPB SCH (22:29)
[2020-09-08] MEDS ORDERED: Metoprolol Tartrate 25 MG TAB PO SCH (22:30)
[2020-09-08] MEDS ORDERED: Atorvastatin Calcium 10 MG TAB PO SCH (22:30)
[2020-09-08] MEDS ORDERED: Lisinopril 20 MG TAB PO SCH (22:45)
[2020-09-09] MEDS: HYDROcodone/Acetaminophen 10/325 mg Tablet PO PRN ×2 (02:00→05:48)
[2020-09-09] MEDS: Clindamycin/D5W 900 MG in Premix Bag 1 BAG IVPB SCH (05:48)
[2020-09-09] MEDS: Ketorolac Tromethamine 30 MG/ML VIAL IVP SCH ×5 (05:49→23:40)
[2020-09-09] MEDS: Famotidine 20 MG TAB PO SCH ×2 (08:24→20:41)
[2020-09-09] MEDS: Lisinopril 20 MG TAB PO SCH ×2 (08:24→20:42)
[2020-09-09] MEDS: Metoprolol Tartrate 25 MG TAB PO SCH ×2 (08:25→17:00)
[2020-09-09] MEDS: Cholecalciferol 1,000 UNITS (25 MCG) TAB PO SCH (08:44)
[2020-09-09] MEDS: pyridOXINE 50 MG (B6) TAB PO SCH (08:45)
[2020-09-09] MEDS: Vit A,C & E/Lutein/Minerals Tablet PO SCH (08:45)
[2020-09-09] MEDS ORDERED: CALCIUM/MAGNESIUM/ZINC PO SCH ×2 (09:00)
[2020-09-09] MEDS ORDERED: Lisinopril 20 MG TAB PO SCH (09:00)
[2020-09-09] MEDS ORDERED: Ondansetron PF 4 MG/2 ML Vial IVP SCH (10:00)
[2020-09-09] MEDS ORDERED: Metoclopramide HCl 10 MG TAB PO SCH (10:00)
[2020-09-09] MEDS: Dextrose 5 %-0.45 % NaCl 1,000 ML IV SCH ×2 (13:14→23:42)
[2020-09-09] MEDS ORDERED: Atorvastatin Calcium 10 MG TAB PO SCH (21:00)
[2020-09-09] MEDS ORDERED: LATANOPROSTENE BUNOD EA EYE SCH ×2 (21:00)
[2020-09-10] MEDS: Ketorolac Tromethamine 30 MG/ML VIAL IVP SCH (05:26)
[2020-09-10 07:54] VITALS: BP 125/74; TEMP 99.1
[2020-09-10] MEDS: Famotidine 20 MG TAB PO SCH (08:43)
[2020-09-10] MEDS: Vit A,C & E/Lutein/Minerals Tablet PO SCH (08:43)
[2020-09-10] MEDS: Metoprolol Tartrate 25 MG TAB PO SCH (08:44)
[2020-09-10] MEDS: Lisinopril 20 MG TAB PO SCH (08:45)
[2020-09-10] MEDS: Cholecalciferol 1,000 UNITS (25 MCG) TAB PO SCH (08:45)
[2020-09-10] MEDS: pyridOXINE 50 MG (B6) TAB PO SCH (08:46)
== END 2020-09-10 10:42 | disposition home or self-care (01) | DRG 483 ==
LOC: SURG A 09-08 05:46 → T4-A 09-08 21:22
PROVIDERS: ADMIT Orthopaedic Surgery; ATTEND Orthopaedic Surgery
PROC: 0RRK0JZ Replacement of Left Shoulder Joint with Synthetic Substitute, Open Approach (ICD-10-PCS; principal; 2020-09-08)
PROC: 0LS40ZZ Reposition Left Upper Arm Tendon, Open Approach (ICD-10-PCS; 2020-09-08)
DX: M19.012 Primary osteoarthritis, left shoulder (principal); M75.22 Bicipital tendinitis, left shoulder; I10 Essential (primary) hypertension; Z20.828 Contact with and (suspected) exposure to other viral communicable diseases; Z88.0 Allergy status to penicillin; Z88.5 Allergy status to narcotic agent; Z79.899 Other long term (current) drug therapy
CPT/HCPCS: 36415; 85610; 85730; A4306; C1713; C1776; J1885; J2250; J2405; J2704; J2795; J3010; J3370; J3490

== ENCOUNTER 2020-12-23 09:09 | Outpatient (CLI) | payer MEDICARE | END 2020-12-23 09:10 | disposition home or self-care (01) | LOC: BICMAMMO 09:09 | PROVIDERS: ATTEND Family Medicine | DX: Z12.31 Encounter for screening mammogram for malignant neoplasm of breast (principal); Z85.820 Personal history of malignant melanoma of skin; Z91.89 Other specified personal risk factors, not elsewhere classified | CPT/HCPCS: 77063; 77067 ==

== ENCOUNTER 2021-09-27 14:26 | Outpatient (CLI) | payer MEDICARE | END 2021-09-27 14:27 | disposition home or self-care (01) | LOC: BICRAD 14:26 | PROVIDERS: ATTEND Family Medicine | DX: M53.3 Sacrococcygeal disorders, not elsewhere classified (principal) | CPT/HCPCS: 72220 ==

== ENCOUNTER 2021-10-05 15:08 | Outpatient (CLI) | payer MEDICARE | END 2021-10-05 15:09 | disposition home or self-care (01) | LOC: BICMAMMO 15:08 | PROVIDERS: ATTEND Family Medicine | DX: Z13.820 Encounter for screening for osteoporosis (principal); M85.89 Other specified disorders of bone density and structure, multiple sites | CPT/HCPCS: 77080 ==

== ENCOUNTER 2021-12-31 13:22 | Outpatient (CLI) | payer MEDICARE | END 2021-12-31 13:23 | disposition home or self-care (01) | LOC: BICMAMMO 13:22 | PROVIDERS: ATTEND Family Medicine | DX: Z12.31 Encounter for screening mammogram for malignant neoplasm of breast (principal); Z85.820 Personal history of malignant melanoma of skin; Z91.89 Other specified personal risk factors, not elsewhere classified | CPT/HCPCS: 77063; 77067 ==

== ENCOUNTER 2022-02-10 13:46 | Outpatient (CLI) | payer MEDICARE | END 2022-02-10 13:47 | disposition home or self-care (01) | LOC: BICULT 13:46 | PROVIDERS: ATTEND Family Medicine | DX: I10 Essential (primary) hypertension (principal); E11.9 Type 2 diabetes mellitus without complications | CPT/HCPCS: 76770; 93975 ==

== ENCOUNTER 2022-10-10 12:25 | Emergency (ER) | payer MEDICARE | END 2022-10-10 14:18 | LOC: ERS 12:25 | DX: G51.0 Bell's palsy (principal); I10 Essential (primary) hypertension; E78.5 Hyperlipidemia, unspecified; Z79.899 Other long term (current) drug therapy; Z79.84 Long term (current) use of oral hypoglycemic drugs | CPT/HCPCS: 99284 ==

== ENCOUNTER 2023-02-10 15:36 | Outpatient (CLI) | payer OTHER | END 2023-02-10 15:37 | disposition home or self-care (01) | LOC: BICULT 15:36 | PROVIDERS: ATTEND Student in an Organized Health Care Education/Training Program | DX: E04.2 Nontoxic multinodular goiter (principal) | CPT/HCPCS: 76536 ==

== ENCOUNTER 2023-02-21 11:54 | Outpatient (CLI) | payer OTHER | END 2023-02-21 11:55 | disposition home or self-care (01) | LOC: BICMAMMO 11:54 | PROVIDERS: ATTEND Internal Medicine | DX: Z12.31 Encounter for screening mammogram for malignant neoplasm of breast (principal) | CPT/HCPCS: 77063; 77067 ==

== ENCOUNTER 2024-04-04 12:04 | Outpatient (CLI) | payer OTHER | END 2024-04-04 12:05 | disposition home or self-care (01) | LOC: BICMAMMO 12:04 | PROVIDERS: ATTEND Family Medicine | DX: Z12.31 Encounter for screening mammogram for malignant neoplasm of breast (principal); Z80.3 Family history of malignant neoplasm of breast; Z85.820 Personal history of malignant melanoma of skin; Z91.89 Other specified personal risk factors, not elsewhere classified | CPT/HCPCS: 77063; 77067 ==

== ENCOUNTER 2024-09-03 09:47 | Observation (INO) | payer OTHER ==
[2024-09-02 09:00] VITALS: BMI 25.4
[~2024-09-03 09:47] MED LIST: Sodium Chloride 0.9% 100 ML ONE; Tranexamic Acid 1,000 MG/10 ML VIAL ONE; Vancomycin 1 GM/200 ML (FROZEN) BAG ONE
[2024-09-03] MEDS ORDERED: Bupivacaine HCl 0.5%/Epinephrine 1:200,000/PF 30 ml Vial ONE (10:07)
[2024-09-03] MEDS ORDERED: fentaNYL PF 100 MCG/2 ML SYRINGE ONE ×2 (10:14→12:15)
[2024-09-03] MEDS ORDERED: PROPOFOL 20 ML ONE (10:15)
[2024-09-03] MEDS ORDERED: PHENYLEPHRINE-NS 100 MCG/ML 10 ML SYRINGE ONE (10:27)
[2024-09-03] MEDS ORDERED: traMADol HCl 50 MG TAB PO PRN (10:30)
[2024-09-03] MEDS ORDERED: Zolpidem Tartrate 5 MG TAB PO PRN (10:30)
[2024-09-03] MEDS ORDERED: fentaNYL 50 mcg/mL 1 mL Vial SLOW IVP PRN (10:30)
[2024-09-03] MEDS ORDERED: Ropivacaine 0.2% 550 ML 550 ML NERVE BLCK SCH (10:30)
[2024-09-03] MEDS ORDERED: HYDROcodone/Acetaminophen 10/325 mg Tablet PO PRN ×2 (10:30)
[2024-09-03] MEDS ORDERED: Promethazine HCl 25 MG/ML VIAL IM PRN (10:30)
[2024-09-03] MEDS ORDERED: HYDROmorphone 2 MG/ML VIAL ONE (11:15)
[2024-09-03] MEDS ORDERED: Ondansetron PF 4 MG/2 ML Vial ONE ×2 (11:16→12:26)
[2024-09-03] MEDS ORDERED: Dexamethasone 4 mg/ml Vial ONE (11:16)
[2024-09-03] MEDS ORDERED: Ondansetron HCl/PF 4 MG/2 ML Vial IVP PRN (12:01)
[2024-09-03] MEDS ORDERED: Ketorolac Tromethamine 30 MG (1 mL) VIAL ONE (12:15)
[2024-09-03] MEDS ORDERED: diphenhydrAMINE 25 MG CAP PO PRN (12:59)
[2024-09-03] MEDS ORDERED: traZODone HCl 50 MG TAB PO PRN (12:59)
[2024-09-03] MEDS: Ketorolac Tromethamine 30 MG (1 mL) VIAL IVP SCH (14:06)
[2024-09-03] MEDS: Sodium Chloride 0.9% 1,000 ML IV SCH (14:06)
[2024-09-03] MEDS: traMADol HCl 50 MG TAB PO PRN (15:23)
[2024-09-03] MEDS ORDERED: Dextrose 5% in Water 1,000 ML IV PRN (15:31)
[2024-09-03] MEDS ORDERED: Insulin Lispro 100 UNIT/ML 10 ML VIAL SC PRN (15:31)
[2024-09-03] MEDS ORDERED: Glucagon 1 MG/ML KIT IM PRN (15:31)
[2024-09-03] MEDS ORDERED: Dextrose 50% Abboject 50 ML SYRINGE SLOW IVP PRN (15:31)
[2024-09-03] MEDS ORDERED: hydrALAZINE 20 MG/ML VIAL SLOW IVP PRN (15:56)
[2024-09-03] MEDS: Ondansetron PF 4 MG/2 ML Vial IVP PRN (17:37)
[2024-09-03] MEDS: CEFAZOLIN 2 GM in Sodium Chloride 0.9% 100 ML IVPB SCH (17:39)
[2024-09-03] MEDS: Senokot S 8.6-50 MG TAB PO SCH (20:50)
[2024-09-03] MEDS: Aspirin 81 mg Enteric Coated Tablet PO SCH (20:50)
[2024-09-03] MEDS: Lisinopril 20 MG TAB PO SCH (20:51)
[2024-09-03] MEDS: metFORMIN XR 500 MG ER.TAB PO SCH (20:51)
[2024-09-03] MEDS: Metoprolol Tartrate 25 MG TAB PO SCH (20:51)
[2024-09-03] MEDS: Ferrous Gluconate 324 MG TAB PO SCH (20:51)
[2024-09-03] MEDS: Atorvastatin Calcium 10 MG TAB PO SCH (20:51)
[2024-09-03] MEDS ORDERED: Latanoprostene Bunod [Vyzulta] 5 ML Drops EA EYE SCH (21:00)
[2024-09-04] MEDS: Pantoprazole DR 40 MG TAB PO PRN (00:03)
[2024-09-04 04:58] LABS: Hematocrit 30.2 % (36.0-47.0); Hemoglobin 10.4 g/dL (12.0-16.0); Mean Corpuscular HGB CONC 34.4 g/dL (32.0-36.0); Mean Corpuscular Hemoglobin 31.8 pg (27.0-31.0); Mean Corpuscular Volume 92.4 fL (78.0-98.0); Mean Platelet Volume 9.1 fL (7.4-10.4); Platelet Count 243 10x3/uL (130-400); RBC Distribution Width 12.6 % (11.5-14.5); Red Blood Cell (RBC) Count 3.27 mill/uL (4.20-5.40)
[2024-09-04] MEDS: Multivitamin W/ Minerals 1 TAB PO SCH (08:30)
[2024-09-04] MEDS: Cholecalciferol 1,000 UNITS (25 MCG) TAB PO SCH (08:30)
[2024-09-04] MEDS: Hydrochlorothiazide 25 MG TAB PO SCH (08:30)
[2024-09-04] MEDS: Acetaminophen 325 MG TAB PO PRN (08:34)
[2024-09-04] MEDS: Calcium-Magnesium-Zinc Tablet PO SCH (13:53)
[2024-09-05 07:50] VITALS: TEMP 98.1
[2024-09-05 08:25] VITALS: BP 132/72
== END 2024-09-05 11:00 | disposition home or self-care (01) ==
LOC: SDC 09:47 → SURG B 13:57 → SDC 17:07 → SURG B 09-05 11:00 → SDC 09-05 11:00
PROVIDERS: ADMIT Orthopaedic Surgery; ATTEND Orthopaedic Surgery
PROC: 0SRC0JZ Replacement of Right Knee Joint with Synthetic Substitute, Open Approach (ICD-10-PCS; principal; 2024-09-03)
DX: M17.11 Unilateral primary osteoarthritis, right knee (principal); I10 Essential (primary) hypertension; E78.5 Hyperlipidemia, unspecified; H40.9 Unspecified glaucoma; R73.03 Prediabetes; Z85.820 Personal history of malignant melanoma of skin; Z96.611 Presence of right artificial shoulder joint; Z96.612 Presence of left artificial shoulder joint; Z90.710 Acquired absence of both cervix and uterus; Z90.89 Acquired absence of other organs; Z79.84 Long term (current) use of oral hypoglycemic drugs; Z79.899 Other long term (current) drug therapy
CPT/HCPCS: 27447; 73560; 82962; 85027; 97110 ×3; 97116 ×3; 97530; A4306; C1713; C1776; C1889; J1100; J1885 ×3; J2405; J2704; J2795; J3370; 36415; 36416

== ENCOUNTER 2025-05-16 10:57 | Outpatient (CLI) | payer OTHER | END 2025-05-16 10:58 | disposition home or self-care (01) | LOC: ULT 10:57 | PROVIDERS: ATTEND Otolaryngology Otolaryngic Allergy | DX: E04.2 Nontoxic multinodular goiter (principal); E11.9 Type 2 diabetes mellitus without complications; E78.2 Mixed hyperlipidemia | CPT/HCPCS: 36415; 76536; 80053; 80061; 82043; 83036; 85025 ==

== ENCOUNTER 2025-05-16 11:13 | Outpatient (CLI) | payer OTHER | END 2025-05-16 11:14 | disposition home or self-care (01) | LOC: BICMAMMO 11:13 | PROVIDERS: ATTEND Family Medicine | DX: Z12.31 Encounter for screening mammogram for malignant neoplasm of breast (principal); N95.9 Unspecified menopausal and perimenopausal disorder; Z80.3 Family history of malignant neoplasm of breast; Z85.820 Personal history of malignant melanoma of skin; Z91.89 Other specified personal risk factors, not elsewhere classified; M85.851 Other specified disorders of bone density and structure, right thigh; M85.852 Other specified disorders of bone density and structure, left thigh | CPT/HCPCS: 77063; 77067; 77080 ==